=== PATIENT | male | born 1970 | race African-American/Black ===

== ENCOUNTER 2022-03-23 13:58 | Emergency (ER) | payer BC ==
[~2022-03-23] VITALS: Ht 190.5 cm; Wt 95.0 kg
[2022-03-23] MEDS ORDERED: CARBAMIDE PEROXIDE 6.5% OTIC SOLN 15ML EACH EAR ONE (14:15)
[2022-03-23 16:02] VITALS: BP 154/78
== END 2022-03-23 16:34 | disposition home or self-care (01) ==
LOC: ER 13:58
DX: H61.23 Impacted cerumen, bilateral (principal)
CPT/HCPCS: 99281